=== PATIENT | female | born 1945 | race Caucasian/White ===

== ENCOUNTER → 2016-12-10 | Outpatient (CLI) | payer OTHER, MEDICARE ==
--- NOTE | 2016-12-10 14:34 | DI ---
LEFT FOOT, 12/10/2016 10:40 AM: Clinical History: Left foot pain. Previous Exam: None at this facility. 3 weightbearing views are submitted. There is a healing stress fracture of the distal third of the th ird metatarsal bone. The remainder of the examination is normal. There is diffuse osteoporosis. Reading: Healing nondisplaced fracture of the distal third of the third metatarsal bone. This probably is a st ress fracture.
== END ==
LOC: RAD 10:42
DX: M79.672 Pain in left foot (principal); S92.335A Nondisplaced fracture of third metatarsal bone, left foot, initial encounter for closed fracture
CPT/HCPCS: 73630; 99212; G0463